=== PATIENT | female | born 1970 | race Two or more races ===

== ENCOUNTER 2023-01-26 14:05 | Outpatient (CLI) | payer OTHER | END 2023-01-26 14:13 | disposition home or self-care (01) | LOC: MRI 14:05 | PROVIDERS: ATTEND Orthopaedic Surgery | DX: S83.232A Complex tear of medial meniscus, current injury, left knee, initial encounter (principal); S83.231A Complex tear of medial meniscus, current injury, right knee, initial encounter | CPT/HCPCS: 73721 ==

== ENCOUNTER 2023-02-18 10:48 | Outpatient (CLI) | payer OTHER | END 2023-02-18 10:49 | disposition home or self-care (01) | LOC: NUCLEAR 10:48 | PROVIDERS: ATTEND Orthopaedic Surgery | DX: I82.403 Acute embolism and thrombosis of unspecified deep veins of lower extremity, bilateral (principal) ==

== ENCOUNTER 2024-08-03 12:03 | Outpatient (CLI) | payer OTHER | END 2024-08-03 12:39 | disposition home or self-care (01) | LOC: MAMO-SONO 12:03 | DX: N64.4 Mastodynia (principal); Z12.13 Encounter for screening for malignant neoplasm of small intestine; E66.01 Morbid (severe) obesity due to excess calories; Z80.3 Family history of malignant neoplasm of breast; M75.31 Calcific tendinitis of right shoulder; M17.0 Bilateral primary osteoarthritis of knee; S83.001A Unspecified subluxation of right patella, initial encounter ==

== ENCOUNTER 2024-10-25 12:50 | Outpatient (CLI) | payer OTHER | END 2024-10-25 12:55 | disposition home or self-care (01) | LOC: SONOGRAMA 12:50 | DX: M75.32 Calcific tendinitis of left shoulder (principal) ==